=== PATIENT | female | born 2000 | race Caucasian/White ===

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

== ENCOUNTER 2022-01-08 10:04 | Outpatient (CLI) | payer OTHER, SELFPAY ==
[2022-01-08 10:52] LABS: Hematocrit 39.8 % (37.0-47.0); Hemoglobin 13.3 g/dL (12.0-15.0); Mean Corpuscular HGB Conc 33.4 g/dl (32-36); Mean Corpuscular Hemoglobin 30.4 pg (26-34); Mean Corpuscular Volume 91.1 fl (80-100); Mean Platelet Volume 10.8 fl (7.4-10.4); Platelet Count Result 206 k/mm3 (150-375); Red Blood Count 4.37 M/mm3 (4.2-5.4); Red Cell Distribution Width 12.1 % (11.5-14.5); White Blood Count 4.6 K/mm3 (4.5-10.0)
[2022-01-08 11:20] LABS: Beta HCG Quantitative < 2.39 mIU/ML
[2022-01-08 11:33] LABS: Thyroid Stimulating Hormone 0.942 uIU/mL (0.465-4.680)
[2022-01-08 11:48] LABS: Free T4 Free Thyroxine 0.91 ng/mL (0.78-2.19)
== END 2022-01-08 10:05 | disposition home or self-care (01) ==
LOC: ANHLAB 10:12
PROVIDERS: Visit Provider Obstetrics & Gynecology Gynecology
DX: N93.8 Other specified abnormal uterine and vaginal bleeding (principal)
CPT/HCPCS: 36415; 84439; 84443; 84702; 85027

== ENCOUNTER 2022-05-31 10:05 | Emergency (ER) | payer OTHER, SELFPAY ==
--- NOTE | ~2022-05-31 | CT_ITS ---
EXAMINATION: CT abdomen pelvis wo con DATE: 05/31/2022 11:30 INDICATION: Abdominal pain. Nausea and vomiting. TECHNIQUE: Computed tomography (CT) of the abdomen and pelvis was performed without intravenous contr ast. Automated exposure control and iterative reconstruction technique were employed. The dose-length product was 284.45 mGy-cm. COMPARISON: Chest CT 12/05/2018 FINDINGS: The visualized portions of the lung bases are clear without pneumonia or pleural effusion. The heart size is normal. No pericardial effusion. The liver, gallbladder, spleen, pancreas, adrenal glands, and kidneys are normal. There is no urolithiasis. There are no dilated loops of bowel. There are changes of appendectomy. There are no pathologically enlarged lymph nodes. There is no free intra peritoneal fluid. There is dextrocurvature of thoracolumbar spine. IMPRESSION: 1. No etiology for the patient's symptoms. Reviewed, dictated and finalized at location A.
[2022-05-31 10:07] VITALS: BP 114/73; PULSE 85; RESP 18; TEMP 36.4; O2SAT 100
--- NOTE | 2022-05-31 10:22 | ED.GENADULT ---
HPI - General Adult General Chief complaint: Nausea/Vomiting/Diarrhea Stated complaint: vomiting Time Seen by Provider: 05/31/22 10:13 Source: RN notes reviewed History of Present Illness HPI narrative: Patient presents emergency room from home for nausea vomiting. Patient states that she has been having issues with nausea and vomiting for the past 1 week. She states that she was at [facility], [place] operated by [facility] on May 26 with nausea vomiting she had negative work-up at that time was discharged with Zofran. States she had been doing better but began to have nausea and vomiting the middle of the night last night with numerous episodes. States that she was finally able to take her Zofran which she had been given at 9 AM this morning and her nausea is improved at this time but came in for further evaluation. She denies any fevers or chills she denies any chest pain or shortness of breath she notes mild abdominal cramping denies any diarrhea Related Data Home Medications Medication Instructions Recorded Confirmed ergocalciferol (vitamin D2) 1,250 11/17/19 mcg (50,000 unit) capsule Allergies Allergy/AdvReac Type Severity Reaction Status Date / Time No Known Allergies Allergy Unknown Verified 05/31/22 10:11 Review of Systems Review of Systems: Gen.: Denies fevers or chills ENT: Denies congestion Respiratory: Denies shortness of breath or cough CV: Denies chest pain or palpitations GI: See HPI denies burning, urgency, frequency or hematuria Musculoskeletal: Denies back pain or muscle pain Neuro: Denies numbness, tingling, weakness or focal weakness Skin: Denies rash Except as documented, all other systems reviewed and negative [facility] Past Medical History Medical History Surgical History Surgical History History of laparoscopic appendectomy Family History Family History Mother Glaucoma High cholesterol Grandparent Chronic obstructive pulmonary disease Seizure Social History Social History Smoking status: Current every day smoker Tobacco type: e-cigarettes/vaping Second hand tobacco smoke exposure: No Alcohol intake: never Substance use: former Gender identity (if verbalized by the patient): Female Spiritual care concerns: No Exam Narrative: APPEARANCE: No acute distress, nontoxic, resting in bed EYES: EOMI HEENT: Normocephalic, atraumatic, OMM RESPIRATORY: No respiratory distress Clear to auscultation bilaterally with no rhonchi wheezing or rales. CARDIOVASCULAR: Regular rate and rhythm without murmurs rubs or gallops. ABDOMINAL: Soft, nontender, nondistended, no rebound or guarding MUSCULOSKELETAl: Moves all extremities. No clubbing, cyanosis or edema. NEURO: Awake and alert. Following commands, speech normal, no focal deficits SKIN:: Warm, dry. No rashes lesions or abrasions PSYCHIATRIC: Normal affect/mood, Course Course Emergency Course: Patient has had no nausea vomiting on ED states she is feeling much better Discussed with patient results of workup and diagnosis. Discussed need for follow-up with primary care, proper use of medication, and reasons to return to the emergency department. Patient understands and agrees to current treatment plan Vital Signs Vital signs: Vital Signs Temperature 97.6 F 05/31/22 10:07 Pulse Rate 85 05/31/22 10:07 Respiratory Rate 18 05/31/22 10:07 Blood Pressure 114/73 05/31/22 10:07 Pulse Oximetry 100 05/31/22 10:07 Oxygen Delivery Room Air 05/31/22 10:07 Temperature 97.6 F 05/31/22 10:07 Pulse Rate 85 05/31/22 10:07 Respiratory Rate 18 05/31/22 10:07 Blood Pressure 114/73 05/31/22 10:07 Pulse Oximetry 100 05/31/22 10:07 Oxygen Delivery Room Air 05/31/22 10:07 Med
[2022-05-31] MEDS: SODIUM CHLORIDE 0.9% IV 1,000 ML 999 ML IV CONT (10:28)
[2022-05-31] MEDS: FAMOTIDINE 20 MG/2 ML VIAL IV PUSH (10:29)
[2022-05-31 10:30] LABS: Basophils Percent Auto 0.6 % (0.2-1.2); Eosinophils Percent Auto 0.6 % (0-4.4); Hematocrit 37.3 % (37.0-47.0); Hemoglobin 12.6 g/dL (12.0-15.0); Immature Granulocyte Absolute 0.01 K/mm3 (0.00-0.031); Immature Granulocyte Percent A 0.2 % (0-0.5); Lymphocytes Percent Auto 17.6 % (18.3-44.2); Mean Corpuscular HGB Conc 33.8 g/dl (32-36); Mean Corpuscular Hemoglobin 30.9 pg (26-34); Mean Corpuscular Volume 91.4 fl (80-100); Mean Platelet Volume 11.2 fl (7.4-10.4); Monocytes Absolute Auto 0.3 K/mm3 (0.1-0.6); Monocytes Percent Auto 6.1 % (2.6-8.5); Neutrophils Absolute Auto 3.8 K/mm3 (1.3-6.7); Neutrophils Percent Auto 74.9 % (45.5-73.1); Platelet Count Result 227 k/mm3 (150-375); Red Blood Count 4.08 M/mm3 (4.2-5.4); Red Cell Distribution Width 12.2 % (11.5-14.5); White Blood Count 5.1 K/mm3 (4.5-10.0)
[2022-05-31 10:42] LABS: Alanine Aminotransferase 22 U/L (6-35); Alkaline Phosphatase 75 U/L (45-116); Anion Gap 12 mmol/L (8-16); Aspartate Amino Transferase 26 U/L (14-36); Bilirubin,Total 0.9 mg/dL (0.2-1.3); Blood Urea Nitrogen 10 mg/dL (8-21); Calcium 9.2 mg/dL (8.9-10.7); Carbon Dioxide 23 mmol/L (22-30); Chloride 106 mmol/L (98-107); Estimated CRCL calculation 119 ml/min; Estimated Glomerular Filt Rate > 60; Glucose 99 mg/dL (65-110); Lipase 31 U/L (23-300); Potassium 3.6 mmol/L (3.4-5.0); Sodium 141 mmol/L (134-143)
[2022-05-31 11:03] LABS: Appearance Urine Turbid (Clear); Bacteria Urine 4+ /hpf; Bilirubin Urine Negative (Negative); Blood Urine Negative (Negative); Color Urine Dark Yellow (Yellow); Glucose Urine UA Negative (Negative); Ketones Urine 1+ mg/dL (Negative); Leukocyte Esterase Ur 2+ LEU/UL (Negative); Need Manual Microscopic Reviewed; Nitrate Urine Negative (Negative); Protein Urine 1+ mg/dL (Negative); RBC Urine 0-2 /hpf (0-2); Specific Grav Ur 1.025 (1.001-1.035); Squamous Epithelial Cell Urine Many /hpf (Few); WBC Urine 21-50 /hpf; pH Urine 5.5 (5.0-9.0)
[2022-05-31 11:05] LABS: Add Urine Microscopic? YES
[2022-05-31 11:06] LABS: Influenza A QL RT-PCR Negative (Negative); Influenza B QL RT-PCR Negative (Negative); SARS-CoV-2 RNA PCR Negative
[2022-05-31 11:50] VITALS: BP 130/74; PULSE 80; RESP 16; O2SAT 99
== END 2022-05-31 12:11 | disposition home or self-care (01) ==
PROVIDERS: Emergency Provider Emergency Medicine
DX: N39.0 Urinary tract infection, site not specified (principal); R11.2 Nausea with vomiting, unspecified; F17.290 Nicotine dependence, other tobacco product, uncomplicated; Z20.822 Contact with and (suspected) exposure to COVID-19
CPT/HCPCS: 36415; 74176; 80053; 81001; 81025; 83690; 85025; 87086; 87088; 87636; 96361; 96365; 99284; J0696; J7030

== ENCOUNTER 2023-02-08 08:38 | Emergency (ER) | payer MEDICAID, SELFPAY ==
--- NOTE | ~2023-02-08 | US_ITS ---
EXAMINATION: US OB transvaginal DATE: 02/08/2023 10:39 INDICATION: Vaginal bleeding during first trimester TECHNIQUE: Real-time pelvic transabdominal and transvaginal ultrasound was performed. COMPARISON: None. FINDINGS: The uterus measures 9.5 x 6.1 x 6.7 cm. There is an intrauterine gestational sac. A yolk sa c is identified. heart motion is identified measuring 185 beats per minute (bpm) by M-mode Dopp ler. The crown rump length measures 2.1 cm, which correlates with an estimated gestational age of 8 weeks and 5 day(s) (+/-) 5 day(s). The right ovary measures 3.8 x 1.4 x 2.2 cm. The left ovary measures 3.3 x 2.3 x 1.8 cm. There is nor mal vascular flow in the ovaries. There is no free fluid in the pelvis. IMPRESSION: 1. Live intrauterine with an estimated gestational age of 8 weeks and 5 day(s) (+/-) 5 day( s) and an estimated delivery date of 09/15/2023. Reviewed, dictated and finalized at location F. LIANCE ENGINEER IMPRESSION: 1. Live intrauterine with an estimated gestational age of 8 weeks and 5 day(s) (+/-) 5 day(s) and an estimated delivery date of 09/15/2023.
[2023-02-08 08:38] VITALS: BP 143/68; PULSE 70; RESP 18; TEMP 36.6; O2SAT 100
[2023-02-08 09:33] LABS: Basophils Percent Auto 0.7 % (0.2-1.2); Eosinophils Absolute Auto 0.1 K/mm3 (0-0.3); Eosinophils Percent Auto 1.1 % (0-4.4); Hematocrit 38.7 % (37.0-47.0); Immature Granulocyte Absolute 0.01 K/mm3 (0.00-0.031); Immature Granulocyte Percent A 0.2 % (0-0.5); Lymphocytes Absolute Auto 1.86 K/mm3 (0.9-3.2); Lymphocytes Percent Auto 33.3 % (18.3-44.2); Mean Corpuscular HGB Conc 33.6 g/dl (32-36); Mean Corpuscular Hemoglobin 30.6 pg (26-34); Mean Corpuscular Volume 91.1 fl (80-100); Mean Platelet Volume 10.3 fl (7.4-10.4); Monocytes Absolute Auto 0.5 K/mm3 (0.1-0.6); Monocytes Percent Auto 8.2 % (2.6-8.5); Neutrophils Absolute Auto 3.2 K/mm3 (1.3-6.7); Neutrophils Percent Auto 56.5 % (45.5-73.1); Platelet Count Result 211 k/mm3 (150-375); Red Blood Count 4.25 M/mm3 (4.2-5.4); Red Cell Distribution Width 11.9 % (11.5-14.5); White Blood Count 5.6 K/mm3 (4.5-10.0)
--- NOTE | 2023-02-08 09:47 | ED.FEMALEGU ---
HPI - Female Genitourinary General Chief complaint: Vaginal Bleeding Stated complaint: 7 weeks preg, bleeding, cramping Time Seen by Provider: 02/08/23 09:47 Source: patient Mode of arrival: ambulatory Limitations: no limitations History of Present Illness HPI Narrative: Rolo is a 22-year-old female patient presenting to the ER today for vaginal bleeding and pelvic cramping times 1 day. She reports that she did have some vaginal bleeding 3 days ago and was seen at another ER but the bleeding stopped. Reports bleeding started again today noted in the toilet. Also is having cramping in the pelvis area. States she is 7 weeks . Denies any fever or chills. Last intercourse was last night. Denies having any pain during intercourse and the intercourse was not rough Related Data Home Medications Medication Instructions Recorded Confirmed ergocalciferol (vitamin D2) 1,250 11/17/19 mcg (50,000 unit) capsule Allergies Allergy/AdvReac Type Severity Reaction Status Date / Time No Known Allergies Allergy Unknown Verified 02/08/23 09:46 Review of Systems Review of Systems: Pertinent positives per HPI. Patient denies any fever, chills, rash, headache, visual changes, dizziness, cough, runny nose, sore throat, shortness of breath, chest pain, palpitations, nausea, vomiting, diarrhea, constipation, abdominal pain, or any urinary issues. [facility] Past Medical History Medical History Surgical History Surgical History History of laparoscopic appendectomy Family History Family History Mother Glaucoma High cholesterol Grandparent Chronic obstructive pulmonary disease Seizure Social History Social History Smoking status: Current every day smoker Tobacco type: e-cigarettes/vaping Second hand tobacco smoke exposure: No Alcohol intake: never Substance use: former Gender identity (if verbalized by the patient): Female Spiritual care concerns: No Comments At the time of my signature, I reviewed and agree with the nursing past medical, surgical, social, and family history. There is no relevant family history pertinent to the patient complaint. Exam Narrative: General: Well-developed, well nourished, in no apparent distress Head: Normocephalic, atraumatic. Cardio: Regular rate and rhythm, s1 and s2 normal, no murmur appreciated. Resp: Clear to auscultation bilaterally, no rhonchi, rales, wheezing or rubs. Abdomen: Soft, pliable, bowel sounds present in all quadrants, non-tender to palpation, no CVAT tenderness. : Pelvic exam performed with (Renetta SANCHEZ) at bedside. Verbal consent obtained from patient. Normal external female genitalia without lesions or masses, Urinary meatus: patent without discharge, Vagina: No lesions, masses,-bloody discharge noted Cervix: pink without mass, lesions, or tenderness. Bloody discharge noted coming from the cervix Adnexa: without palpable mass or tenderness. Course Course Emergency Course: Portions of this record may have been created with voice recognition software. Vital Signs Vital signs: Vital Signs Temperature 36.6 C 02/08/23 08:38 Pulse Rate 70 02/08/23 08:38 Respiratory Rate 18 02/08/23 08:38 Blood Pressure 143/68 H 02/08/23 08:38 Pulse Oximetry 100 02/08/23 08:38 Oxygen Delivery Room Air 02/08/23 08:38 Temperature 36.6 C 02/08/23 08:38 Pulse Rate 70 02/08/23 08:38 Respiratory Rate 18 02/08/23 08:38 Blood Pressure 143/68 H 02/08/23 08:38 Pulse Oximetry 100 02/08/23 08:38 Oxygen Delivery Room Air 02/08/23 08:38 Vital signs reviewed MDM - Female Genitourinary MDM Narrative Medical decision making narrative: At the time of visit patient
[2023-02-08 12:03] LABS: Alanine Aminotransferase 30 U/L (6-35); Albumin Level 4.8 g/dL (3.5-5.1); Alkaline Phosphatase 60 U/L (38-126); Anion Gap 11 mmol/L (8-16); Aspartate Amino Transferase 30 U/L (14-36); Bilirubin,Total 0.7 mg/dL (0.2-1.3); Blood Urea Nitrogen 9 mg/dL (7-17); Calcium 9.4 mg/dL (8.4-10.2); Carbon Dioxide 20 mmol/L (22-30); Chloride 106 mmol/L (98-107); Estimated CRCL calculation 108 ml/min; Estimated Glomerular Filt Rate > 60; Glucose 88 mg/dL (65-110); Potassium 3.6 mmol/L (3.4-5.0); Sodium 137 mmol/L (137-145)
[2023-02-08 12:25] LABS: Add Urine Microscopic? YES; Appearance Urine Clear (Clear); Bacteria Urine None Seen /hpf; Bilirubin Urine Negative (Negative); Blood Urine 3+ (Negative); Color Urine Yellow (Yellow); Glucose Urine UA Negative (Negative); Ketones Urine 3+ mg/dL (Negative); Leukocyte Esterase Ur Negative LEU/UL (Negative); Need Manual Microscopic Reviewed; Nitrate Urine Negative (Negative); Non Pathogenic Casts 0-2; Protein Urine Negative (Negative); RBC Urine >100 /hpf (0-2); Squamous Epithelial Cell Urine Occasional /hpf (Few); Urobilinogen Urine 0.2 mg/dL (<2.0); WBC Urine 0-5 /hpf; pH Urine 5.5 (5.0-9.0)
[2023-02-08 13:19] VITALS: BP 138/68; PULSE 84; RESP 16; O2SAT 98
== END 2023-02-08 13:20 | disposition home or self-care (01) ==
PROVIDERS: Emergency Medicine; Emergency Provider Nurse Practitioner Family
DX: O20.9 Hemorrhage in early pregnancy, unspecified (principal); O99.331 Smoking (tobacco) complicating pregnancy, first trimester; F17.290 Nicotine dependence, other tobacco product, uncomplicated; Z3A.01 Less than 8 weeks gestation of pregnancy
CPT/HCPCS: 36415; 76817; 80053; 81001; 84702; 85025; 85461; 86850; 86900; 86901; 99284

== ENCOUNTER 2023-03-17 10:20 | Outpatient (CLI) | payer OTHER, SELFPAY ==
[2023-03-17 10:53] LABS: Basophils Percent Auto 0.3 % (0.2-1.2); Eosinophils Absolute Auto 0.1 K/mm3 (0-0.3); Eosinophils Percent Auto 0.8 % (0-4.4); Hematocrit 34.4 % (37.0-47.0); Hemoglobin 11.5 g/dL (12.0-15.0); Immature Granulocyte Absolute 0.03 K/mm3 (0.00-0.031); Immature Granulocyte Percent A 0.4 % (0-0.5); Lymphocytes Absolute Auto 1.89 K/mm3 (0.9-3.2); Mean Corpuscular HGB Conc 33.4 g/dl (32-36); Mean Corpuscular Hemoglobin 30.3 pg (26-34); Mean Corpuscular Volume 90.8 fl (80-100); Mean Platelet Volume 10.2 fl (7.4-10.4); Monocytes Absolute Auto 0.3 K/mm3 (0.1-0.6); Monocytes Percent Auto 4.5 % (2.6-8.5); Neutrophils Absolute Auto 5.2 K/mm3 (1.3-6.7); Platelet Count Result 236 k/mm3 (150-375); Red Blood Count 3.79 M/mm3 (4.2-5.4); Red Cell Distribution Width 11.9 % (11.5-14.5); White Blood Count 7.6 K/mm3 (4.5-10.0)
[2023-03-17 11:42] LABS: HIV 1/2 Ab P24 Ag Result Negative (Negative)
[2023-03-17 12:08] LABS: Hemoglobin A1C 5.2 % (<5.7)
[2023-03-17 12:12] LABS: Hepatitis B Surface Antigen Negative (Negative); Rubella IgG Antibody 13.5 IU/ML
[2023-03-17 12:17] LABS: Hepatitis C Virus Antibody Negative (Negative)
[2023-03-17 15:50] LABS: Rapid Plasma Reagin Non-Reactive (NonReactive)
== END 2023-03-17 10:21 | disposition home or self-care (01) ==
LOC: ANHLAB 10:24
PROVIDERS: PCP Advanced Practice Midwife; Visit Provider Advanced Practice Midwife
DX: Z36.9 Encounter for antenatal screening, unspecified (principal)
CPT/HCPCS: 36415; 82306; 82728; 83036; 85025; 86592; 86703; 86762; 86803; 86850; 86900; 86901; 87340; G0432

== ENCOUNTER 2023-04-27 16:13 | Outpatient (CLI) | payer OTHER, SELFPAY ==
--- NOTE | ~2023-04-27 | US_ITS ---
EXAMINATION: US OB /maternal detail DATE: 04/27/2023 17:32 INDICATION: Second trimester anatomic survey TECHNIQUE: Real-time ultrasound of the pelvis was performed. COMPARISON: None. FINDINGS: There is a single living fetus in vertex presentation. The placenta is anterior and 5.2 cm from the i nternal cervical os. The measured cervical length is 6.4 cm. heart rate is 138 beats per minute (bpm). cardiac activity and movement are noted. The amniotic fluid index is subjectivel y normal. The stomach is not well demonstrated. The following anatomy was identified as normal: 4 chamber heart 3 vessel cord cord insertion kidneys urinary bladder spine diaphragm ventricles cisterna magna cerebellum The following biometric data were obtained: Biparietal diameter (BPD): 4.8 cm; head circumference (HC): 18.6 cm; abdominal circumference (AC): 15 .4 cm; femur length (FL): 3.3 cm. These measurements are concordant. Estimated weight is 361 g +/- 54 g, which correlates with the 83rd percentile when 09/15/2023 is used as estimated date of delivery. As single measurements, these parameters are each equal to the following estimated gestational ages w ith ranges of +/- 2 standard deviations: BPD: 20 weeks 3 days +/- 1 weeks 5 days. HC: 20 weeks 6 days +/- 1 weeks 3 days. AC: 20 weeks 4 days +/- 2 weeks 0 days. FL: 20 weeks 3 days +/- 1 weeks 6 days. estimated gestational age based solely on measurements from this exam is 20 weeks 4 days +/- 1 weeks 3 days. IMPRESSION: 1. Single living fetus in vertex presentation. 2. Estimated weight is 361 g +/- 54 g, which correlates with the 83rd percentile when 09/15/2023 is used as estimated date of delivery. 3. stomach not well demonstrated. Reviewed, dictated and finalized at location L. W[employer] QU[employer] ASSURANCE SPECIALIST IMPRESSION: 1. Single living fetus in vertex presentation. 2. Estimated weight is 361 g +/- 54 g, which correlates with the 83rd per centile when 09/15/2023 is used as estimated date of delivery. 3. stomach not well demonstrated.
== END 2023-04-27 16:14 | disposition home or self-care (01) ==
LOC: ANHIMG 16:14
PROVIDERS: PCP Advanced Practice Midwife; Visit Provider Advanced Practice Midwife
DX: Z36.9 Encounter for antenatal screening, unspecified (principal); Z3A.20 20 weeks gestation of pregnancy
CPT/HCPCS: 76805

== ENCOUNTER 2023-05-28 10:26 | Outpatient (CLI) | payer OTHER, SELFPAY ==
--- NOTE | ~2023-05-28 | US_ITS ---
EXAMINATION: US OB follow up DATE: 05/28/2023 12:22 INDICATION: Follow-up growth TECHNIQUE: Real-time transabdominal obstetric ultrasound. FINDINGS: Comparison to multiple prior studies sequentially, with oldest reviewed study dated 2022. There is a single living fetus in vertex presentation. The placenta is anterior without placenta pre via. cardiac activity and movement is noted with a heart rate of 1:30 beats per minute. The amniotic fluid volume is normal. MARIAJOSE measures 17.6 cm. The following biometric data were obtained: BPD: 62mm corresponds to gestational age 25 weeks 2 days. Head circumference: 226mm corresponds to gestational age 24 weeks 5 days. Abdominal circumference: 197mm corresponds to gestational age 24 weeks 2 days. Femur length: 47mm corresponds to gestational age 25 weeks 4 days. Estimated weight: 743grams +/- 111grams, 68%.] IMPRESSION: 1. Single living intrauterine in vertex presentation with an estimated gestational age of 25 weeks 0 days by inititial ultrasound. Appropriate interval growth. 2. Normal placenta. Reviewed, dictated and finalized at location B. IMPRESSION: 1. Single living intrauterine in vertex presentation with an estimat ed gestational age of 25 weeks 0 days by inititial ultrasound. Appropriate int erval growth. 2. Normal placenta.
== END 2023-05-28 10:27 | disposition home or self-care (01) ==
LOC: ANHIMG 10:30
PROVIDERS: PCP Advanced Practice Midwife; Visit Provider Obstetrics & Gynecology Gynecology
DX: Z36.2 Encounter for other antenatal screening follow-up (principal)
CPT/HCPCS: 76816

== ENCOUNTER 2023-06-30 09:50 | Outpatient (CLI) | payer OTHER, SELFPAY ==
[2023-06-30 11:34] LABS: Hematocrit 33.2 % (37.0-47.0); Hemoglobin 11.3 g/dL (12.0-15.0)
[2023-06-30 11:43] LABS: Glucose 1 Hour PP 50gm Dose 119 mg/dL
[2023-06-30 12:25] LABS: HIV 1/2 Ab P24 Ag Result Negative (Negative)
[2023-06-30 13:23] LABS: Vitamin D 25 Hydroxy 35.1 ng/mL
== END 2023-06-30 09:51 | disposition home or self-care (01) ==
LOC: ANHLAB 09:53
PROVIDERS: PCP Advanced Practice Midwife; Visit Provider Advanced Practice Midwife
DX: Z36.9 Encounter for antenatal screening, unspecified (principal)
CPT/HCPCS: 36415; 82306; 82947; 85014; 85018; 86703; G0432

== ENCOUNTER 2023-08-17 15:14 | Outpatient (CLI) | payer OTHER, SELFPAY ==
--- NOTE | ~2023-08-17 | US_ITS ---
EXAMINATION: US OB follow up DATE: 08/17/2023 16:44 INDICATION: Expected size less than expected for estimated gestational age TECHNIQUE: Real-time ultrasound of the pelvis was performed. The interpreting radiologist was not pre sent for the study. COMPARISON: None. FINDINGS: There is a single living fetus in vertex presentation. The placenta is anterior and not low-lying. F etal heart rate is 128 beats per minute (bpm). The amniotic fluid volume is subjectively normal. The following biometric data were obtained: BPD: 9.4 cm -> 38 weeks 0 days Head circumference: 34.2 cm -> 39 weeks 3 days Abdominal circumference: 31.6 cm -> 35 weeks 4 days Femur length: 6.9 cm -> 35 weeks 2 days These measurements are concordant. Head circumference to abdominal circumference ratio: 1.08 (normal range 0.92-1.05). Estimated weight: 2857 g (+/-) 429 g or 6 lbs. 5 oz. (+/-) 15 oz. IMPRESSION: 1. Single living fetus in vertex presentation with heart rate of 128 bpm. 2. Estimated weight is 58th percentile by Hadlock criteria when 09/15/2023 is used as the estima maura date of delivery (MALLORY). Please correlate with clinical information or earlier ultrasounds for mos t accurate MALLORY. Reviewed, dictated and finalized at location A. IMPRESSION: 1. Single living fetus in vertex presentation with heart rate of 128 bpm. 2. Estimated weight is 58th percentile by Hadlock criteria when 09/15/2023 is used as the estimated date of delivery (MALLORY). Please correlate with clinica l information or earlier ultrasounds for most accurate MALLORY.
== END 2023-08-17 15:15 | disposition home or self-care (01) ==
LOC: ANHIMG 15:15
PROVIDERS: PCP Advanced Practice Midwife; Visit Provider Obstetrics & Gynecology Gynecology
DX: O36.5930 Maternal care for other known or suspected poor fetal growth, third trimester, not applicable or unspecified (principal); Z3A.00 Weeks of gestation of pregnancy not specified
CPT/HCPCS: 76816

== ENCOUNTER 2023-09-02 21:21 | Inpatient (IN) | payer OTHER, SELFPAY ==
[2023-09-02 21:32] VITALS: BP 111/77; PULSE 102
[2023-09-02 22:00] VITALS: BP 126/80; PULSE 97
[2023-09-02 22:02] LABS: Basophils Percent Auto 0.3 % (0.2-1.2); Eosinophils Absolute Auto 0.1 K/mm3 (0-0.3); Eosinophils Percent Auto 0.5 % (0-4.4); Hematocrit 31.7 % (37.0-47.0); Hemoglobin 10.9 g/dL (12.0-15.0); Immature Granulocyte Absolute 0.06 K/mm3 (0.00-0.031); Immature Granulocyte Percent A 0.6 % (0-0.5); Lymphocytes Percent Auto 20.3 % (18.3-44.2); Mean Corpuscular HGB Conc 34.4 g/dl (32-36); Mean Corpuscular Hemoglobin 30.6 pg (26-34); Mean Platelet Volume 12.3 fl (7.4-10.4); Monocytes Absolute Auto 0.8 K/mm3 (0.1-0.6); Monocytes Percent Auto 7.3 % (2.6-8.5); Neutrophils Absolute Auto 7.7 K/mm3 (1.3-6.7); Platelet Count Result 176 k/mm3 (150-375); Red Blood Count 3.56 M/mm3 (4.2-5.4); Red Cell Distribution Width 13.2 % (11.5-14.5); White Blood Count 10.8 K/mm3 (4.5-10.0)
[2023-09-02 22:30] VITALS: BP 118/74; PULSE 95
[2023-09-02 22:44] VITALS: BMI 21.8
[2023-09-02 22:51] LABS: HIV 1/2 Ab P24 Ag Result Negative (Negative)
[2023-09-02 23:00] VITALS: BP 115/81; PULSE 91; TEMP 36.6
[2023-09-02 23:01] LABS: Hepatitis B Surface Antigen Negative (Negative)
[2023-09-02 23:02] LABS: Rubella IgG Antibody 10.9 IU/ML
[2023-09-02 23:30] VITALS: BP 123/77; PULSE 77
[2023-09-03] VITALS (84 sets, daily range): BP systolic 65–194; BP diastolic 38–166; PULSE 63–141; RESP 16–20; TEMP 36.2–37.3; O2SAT 94–100
[2023-09-03] MEDS: LACTATED RINGERS 1,000 ML 125 ML IV CONT (02:32)
[2023-09-03] MEDS: OXYTOCIN 30 UNITS/NS 500 ML 30 UNITS/500 ML BAG IV CONT (02:35)
--- NOTE | 2023-09-03 03:20 | WPDANESEPP ---
Anes - Eval Pre Procedure Procedure: labor epidural Date/Time: 09/03/23 03:20 Surgeon: buzz Preop Diagnosis: pain during labor Pre Op Diagnosis: Leaking Patient Data Age: 23 Gender: F Height: 1.83 m Weight: 73 kg Last Vital Signs Temp 36.6 C 09/03/23 01:00 Pulse 78 09/03/23 03:00 BP 112/62 09/03/23 03:00 Pulse Ox 99 09/03/23 03:15 O2 Del Method Room Air 09/02/23 22:47 Allergies Allergy/AdvReac Type Severity Reaction Status Date / Time No Known Allergies Allergy Unknown Verified 09/03/23 02:11 Home Medications Medication Instructions Recorded Confirmed Type ergocalciferol (vitamin D2) 1,250 11/17/19 History mcg (50,000 unit) capsule ofloxacin 0.3 % ear drops 10 drp LEFT EAR Q12H 14 days #10 mL 11/17/19 Rx cephalexin 500 mg capsule 500 mg PO Q8H 7 days #21 caps 05/31/22 Rx famotidine 20 mg tablet (Pepcid AC) 20 mg PO DAILY #14 tabs 05/31/22 Rx Laboratory Tests 09/02/23 21:55 WBC 10.8 H K/mm3 (4.5-10.0) RBC 3.56 L M/mm3 (4.2-5.4) Hgb 10.9 L g/dL (12.0-15.0) Hct 31.7 L % (37.0-47.0) MCV 89.0 fl (80-100) MCH 30.6 pg (26-34) MCHC 34.4 g/dl (32-36) RDW 13.2 % (11.5-14.5) Plt Count 176 k/mm3 (150-375) MPV 12.3 H fl (7.4-10.4) Immature Gran % (Auto) 0.6 H % (0-0.5) Neut % (Auto) 71.0 % (45.5-73.1) Lymph % (Auto) 20.3 % (18.3-44.2) Greer % (Auto) 7.3 % (2.6-8.5) Eos % (Auto) 0.5 % (0-4.4) Baso % (Auto) 0.3 % (0.2-1.2) Lymph # (Auto) 2.20 K/mm3 (0.9-3.2) Greer # (Auto) 0.8 H K/mm3 (0.1-0.6) Eos # (Auto) 0.1 K/mm3 (0-0.3) Baso # (Auto) 0.0 K/mm3 (0.0-0.1) Abs Immat Gran (auto) 0.06 H K/mm3 (0.00-0.031) Absolute Neuts (auto) 7.7 H K/mm3 (1.3-6.7) Absolute Nucleated RBC 0.000 K/mm3 (0.0-0.012) Nucleated RBC % 0.0 % (0.0-0.2) RPR Pending Hep Bs Antigen Negative (Negative) HIV 1&2 Ab/P24 Ag 4thGn Negative (Negative) Rubella IgG Antibody 10.9 IU/ML (10 - ) Blood Type A Positive Antibody Screen Negative Patient hx anesthesia problems: none Family hx anesthesia problems: none Results Review: All pre-operative results and documents have been reviewed as part of the pre-operative evaluation. [facility] Past Medical History Medical History Surgical History Surgical History History of laparoscopic appendectomy Family History Family History Mother Glaucoma High cholesterol Grandparent Chronic obstructive pulmonary disease Seizure Social History Social History Smoking status: Current every day smoker Tobacco type: e-cigarettes/vaping Second hand tobacco smoke exposure: Yes Alcohol intake: never Substance use: former Last use: January 2023 Do You Feel Safe in your Home?: Yes Lack of Transportation: No Lack of Food: Never True Current Housing: I Have Housing Concerned About Future Housing: No Difficulty Paying Gas/Electric Bills: No Difficulty Paying for Meds: No Currently Unemployed: No Education: High School Diploma/GED Difficulty w/ Childcare or Family Care: No Gender identity (if verbalized by the patient): Female Spiritual care concerns: No Exam Day of Procedure 09/03/23 03:20
--- NOTE | 2023-09-03 06:53 | WPDOBADMIT ---
Obstetrics - Admit Note Admission Note: record reviewed. No pertinent additions to the history and/or any subsequent changes in the physical findings that are not consistent with the expected course of the were found. Additions to the history and/or subsequent changes in the physical findings follow. Admitted from home after SROM of clear fluid. .
--- NOTE | 2023-09-03 06:54 | PM.OBPRVD ---
OB - Vaginal Delivery Note Procedure Delivery date: 09/03/23 Induction method: None Delivery augmentation: Pitocin Delivery monitor: External FHT and External Uterine Route of delivery: Episiotomy description: None Laceration Description: None Specimen: Yes (placenta) Quantitative Blood Loss (ml): 250 Anesthesia type: Epidural Disposition: Floor Complications: No immediate complications Narrative: Rolo arrived from home after Spontaneous rupture membranes at home. After few hours of no signs of labor or regular painful contractions, Pitocin was started. She quickly progressed to complete dilation and pushed very well with contractions. She delivered the head over intact perineum. Excellent restitution was observed. There was easy delivery of both the anterior and posterior shoulders followed by the remainder of the infant. He was placed on the maternal abdomen and dried and stimulated by the nursery staff. At approximately 20 minutes of life, brisk bleeding was noted however there was no lengthening of the umbilical cord. Gentle fundal massage and gentle cord traction were continued but the placenta remained undelivered. At this time, CNM palpated for the placenta. Almost the entire placenta was present in the lower uterine segment with a very small portion remaining adherent to the fundus. A portion was approximately 3 cm wide manual sweep was performed and the placenta delivered intact at this time. There was excellent uterine tone and hemostasis. Mother and baby skin to skin and delivery room. Britton Baby Date of : 09/03/23 Time of : 06:14 Weeks of gestation at delivery: 38 Infant gender: Male Weight (pounds): 6 Weight (ounces): 12 presentation: vertex position: Right Occiput Anterior Placenta delivery description: Manual Removal Cord Vessel Description: 3 Vessels and Delayed Cord Clamping score one minute: 8 score five minutes: 9
[2023-09-03] MEDS: ceFAZolin 2 GM/D5W 50 ML 2 GM/50 ML BAG IVPB (06:55)
[2023-09-03] MEDS: OXYTOCIN 30 UNITS/NS 500 ML 30 UNITS/500 ML BAG 125 UNITS IV CONT (06:55)
--- NOTE | 2023-09-03 07:02 | PM.OBDSVD ---
DS: Admitting Diagnosis Discharge Date 09/04/23 Admitting Diagnosis 23 y.o. at 38 weeks SROM Hx Tachycardia Hx Lap Appy Nicotine use during Marijuana use during DS: Discharge Diagnosis Discharge Diagnosis (1) (normal spontaneous vaginal delivery): Code(s): O80 - Encounter for full-term uncomplicated delivery Status: Acute OB - DS: Summary Hospital Course Hospital Course: Uncomplicated OB Procedures : Ultrasound OB Procedures Intrapartum: Spontaneous Vag Delivery and Retained placenta OB Procedures: : None Peripartum Data Infant Delivery Method: Natural Vaginal Laceration Description: None Episiotomy description: None complications: none Status at Discharge Functional status at discharge: independent ambulation Overall status at discharge: patient is progressing back to baseline Time Spent with Patient Time attestation: Total time spent providing and/or coordinating discharge services: Exam Narrative: Alert and oriented. Mood is pleasant and cooperative. Perineum with minimal edema. Fundus firm and below umbilicus. Const: General: cooperative, healthy appearing, no acute distress and alert Orientation/consciousness: patient oriented x3 Limitations: no limitations Resp: Effort & Inspection: normal respiratory effort and able to speak in complete sentences Auscultation: clear to auscultation bilaterally Cardio: Rate: regular rate GI: Inspection: normal to inspection Auscultation: normal bowel sounds : General: Yes bladder normal to palpation External Female Exam: other (lochia WNL) Bimanual exam- vagina & uterus: bladder normal to palpation Other: Fundus firm and below U Skin: General skin exam: normal color and no rashes or lesions noted Neuro: General: patient oriented x3 and moves all extremities Cognition (Neuro): normal cognition Extrem: General: normal to inspection and no calf tenderness Psych: Appearance: grossly normal Mental Status: mental status grossly normal Affect: normal affect Thought process: Normal thought process present DS: Data Data Completed and Pending Labs on day of discharge: Labs from last 24 hours 09/02/23 21:55 WBC 10.8 H RBC 3.56 L Hgb 10.9 L Hct 31.7 L MCV 89.0 MCH 30.6 MCHC 34.4 RDW 13.2 Plt Count 176 MPV 12.3 H Immature Gran % (Auto) 0.6 H Neut % (Auto) 71.0 Lymph % (Auto) 20.3 Lake % (Auto) 7.3 Eos % (Auto) 0.5 Baso % (Auto) 0.3 Lymph # (Auto) 2.20 Lake # (Auto) 0.8 H Eos # (Auto) 0.1 Baso # (Auto) 0.0 Abs Immat Gran (auto) 0.06 H Absolute Neuts (auto) 7.7 H Absolute Nucleated RBC 0.000 Nucleated RBC % 0.0 RPR Pending Hep Bs Antigen Negative HIV 1&2 Ab/P24 Ag 4thGn Negative Rubella IgG Antibody 10.9 Blood Type A Positive Antibody Screen Negative Discharge Plan Discharge Attending physician on discharge: Kesha Alvarado Discharging Clinician: Lauren Oropeza Patient Disposition: Home, Self-Care Activity: may shower and pelvic rest Diet: as tolerated Wound Care Instructions: follow printed instructions Discharge Instructions: Continue taking your vitamin and any other supplements as previously directed (Examples: Iron, Vitamin D). You may take Tylenol 1000mg over the counter every 6 hours as needed for pain. Do not exceed 4000mg of Tylenol daily. You may continue using tucks pads and dermoplast spray if needed for a few more days. Depression Notify provider for signs or symptoms. These may include- Feelings: Feeling anxious, angry, hopeless, guilt, or loss of interest/pleasure in activities you normally enjoy. Mood swings or panic attacks. General: Extreme fatigue, loss of your appetite, feeling restless. Crying excessively, irritability, insomnia Psychological: Lack of concentration, depression or fear, unwanted thoughts Weigh
[2023-09-03] MEDS: BENZOCAINE 20% AER SPR (*SP) 56 GM CAN 1 SPRAY TOPICAL (09:12)
[2023-09-03] MEDS: WITCH HAZEL 40 PADS 1 PAD TOPICAL (09:12)
[2023-09-03 10:32] LABS: Rapid Plasma Reagin Non-Reactive (NonReactive)
--- NOTE | 2023-09-03 11:18 | OBPPTRN ---
0930-Patient transferred to post room #292 via wheelchair. Support person present. Oriented to unit, room, information board, rooming in, admission packet and security measures. Patient verbalizes understanding.
[2023-09-03] MEDS: IBUPROFEN 600 MG TABLET PO (22:15)
[2023-09-04 04:09] LABS: Hematocrit 31.4 % (37.0-47.0); Hemoglobin 10.5 g/dL (12.0-15.0)
[2023-09-04] MEDS: MULTIVIT/MIN/PREN/FOL AC/IRON TABLET 1 TAB PO (06:38)
[2023-09-04] MEDS: DOCUSATE SODIUM 100 MG CAPSULE PO (06:38)
[2023-09-04 06:40] VITALS: BP 115/68; PULSE 76; RESP 18; TEMP 36.5; O2SAT 99
--- NOTE | 2023-09-04 08:04 | PM.OBPNVD ---
OB - PN: Subj Subjective Date/time seen: 09/04/23 0745 Interval history: Doing well. Urinating without difficulty. Denies passing any large clots. Denies dizziness with ambulating. Tolerating po food and fluids. Bonding with infant. Patient comments: no complaints baby status: doing well feeding status: exclusively bottle feeding OB - PN: Obj Data Labs 09/04/23 03:08 Labs: Laboratory Results - last 24 hr 09/02/23 09/04/23 21:55 03:08 Hgb 10.5 L Hct 31.4 L RPR Non-reactive OB - PN A/P Assessment and Plan (1) (normal spontaneous vaginal delivery): Code(s): O80 - Encounter for full-term uncomplicated delivery Status: Acute Plan day: 1 Plan: discharge home Time Spent With Patient Time: Total time spent is greater than 50% in coordination of care (as documented) at patient's floor/unit and/or counseling patient: Review of Systems Review of Systems: All systems reviewed & are unremarkable except as noted in HPI and below Exam Narrative: Alert and oriented. Mood is pleasant and cooperative. Perineum with minimal edema. Fundus firm and below umbilicus. Const: General: cooperative, healthy appearing, no acute distress and alert Orientation/consciousness: patient oriented x3 Limitations: no limitations Resp: Effort & Inspection: normal respiratory effort and able to speak in complete sentences Auscultation: clear to auscultation bilaterally Cardio: Rate: regular rate GI: Inspection: normal to inspection Auscultation: normal bowel sounds : General: Yes bladder normal to palpation External Female Exam: other (lochia WNL) Bimanual exam- vagina & uterus: bladder normal to palpation Other: Fundus firm and below U Skin: General skin exam: normal color and no rashes or lesions noted Neuro: General: patient oriented x3 and moves all extremities Cognition (Neuro): normal cognition Extrem: General: normal to inspection and no calf tenderness Psych: Appearance: grossly normal Mental Status: mental status grossly normal Affect: normal affect Thought process: Normal thought process present
[2023-09-04] MEDS: medroxyPROGESTERone ACETATE IM 150 MG/ML SYR IM (09:10)
[2023-09-05 10:19] VITALS: BP 106/73; PULSE 91; RESP 18; TEMP 36.5; O2SAT 98
== END 2023-09-04 09:22 | disposition home or self-care (01) | DRG 560 ==
LOC: ANHLDR 09-03 07:06 → ANHOB2 09-03 09:35
PROVIDERS: Admitting Provider Obstetrics & Gynecology Gynecology; PCP Advanced Practice Midwife; Visit Provider Obstetrics & Gynecology Gynecology
DX: O80 Encounter for full-term uncomplicated delivery (principal); Z3A.38 38 weeks gestation of pregnancy; Z37.0 Single live birth
CPT/HCPCS: 36415; 85014; 85018; 85025; 86592; 86703; 86762; 86850; 86900; 86901; 87340; 88307; A9270; G0432; J0690; J1050; J2590; J2795; J7120

== ENCOUNTER 2024-12-02 08:17 | Outpatient (CLI) | payer OTHER, SELFPAY ==
--- OUTSIDE RECORDS SUMMARY | 2024-12-02 08:25 | XMS_ITS | Patient Health Record ---
Author Organization [facility] Address [address] [place] [address] Care Team Providers Care Fabrication Manager Name Role Phone Radha Fermin Primary Care Provider [phone] Allergies No Known Allergies Reason For Referral No Information Medications Medication SIG (Take, Route, Frequency, Duration) Notes Start Date End Date Status Polyethylene Glycol 3350 17 GM/SCOOP as directed Orally twice a day with meals; Duration: 30 days 07/03/2021 Active Azithromycin 250 MG take 2 tablets then 1 tablet once a day Orally once a day; Duration: 5 days 12/25/2021 Active Social History Tobacco Use: Social History Observation Description Date Details (start date - stop date) Unknown Sex Assigned At : Social History Observation Description Sex Assigned At Female Dont use, Tobacco Use/Smoking Question Answer Notes Are you a Uses tobacco in other forms Alcohol Screen (Audit-C) Question Answer Notes Did you have a drink containing alcohol in the p ast year? No Problems Problem Type SNOMED Code ICD Code Onset Dates Problem Status W/U Status Risk Notes Problem Constipation (22232839) Constipation (K59.00) Active confirmed Problem Adult health examination (922342094) Routine adult health maintenance (Z00.00) Active confirmed Problem Chronic sinusitis (46845865) Sinusitis, unspecified chronicity, unspecified location (J32.9) Active confirmed Problem Pre-procedure evaluation check (012474173) Preoperative clearance (Z01.818) Active confirmed Problem Skin sensation disturbance (07353633) Numbness of toes (R20.0) Active confirmed Problem Follow-up status (569444580) Follow up (Z09) Active confirmed Plan Of Treatment No Information Insurance Providers Payer Name Payer Address Payer Phone Subscriber Number Group Number Insured Name Patient Relationship to Insured Coverage Start Date Coverage End Date [facility] Attn Claims Department [address] [place] [address] [phone] [id number] Rolo Mendiola Self - patient is the insured 2 [facility] [address] [place] [address] [phone] [id number] Rolo Mendiola Self - patient is the insured 2 Medical (General) History Medical History History ICD Code constipation Surgical History Surgery Date(Month/Year) Left big toe-bunion 2019 appendectomy 2019 right ankle-small bone removal 2021 Hospitalization History Reason Date(Month/Year) When appendix was removed 2019
--- OUTSIDE RECORDS SUMMARY | 2024-12-02 08:25 | XMS_ITS | Clinical Summary ---
Author Organization [email or web address] Address [address] [place] [address] Care Team Providers Care Director Prospect Name Role Phone Radha Fermin APRN-PRODUCT INFO SPECIALIST Primary Care Provider [phone] [facility] Affiliates and Associated Physician Practices is amultiple site organization consisting of ambulatory clinics and hospital sitesin [place], [place], [place] and [place]. This disclosure is being madepursuant to the Care Everywhere program and may not contain all information available regarding this patient. Last updated 17.[email or web address] Allergies No known active allergies Medications * Be aware that medications may not be up to date on this document. Alwaysverify current medications with the patient. ergocalciferol (DRISDOL) 1.25 MG (48749 UT) capsule Take 50,000 Units by mouth every 7 days Active Vit-Fe Fumarate-FA ( VITAMIN) 27-0.8 MG tablet Take 1 tablet by mouth once daily Active aspirin EC (Ecotrin) 81 MG tablet Take 1 (one) tablet by mouth once daily Active Active Problems Problem Noted Date Diagnosed Date Tachycardia Social History Tobacco Use Types Packs/Day Years Used Date Smoking Tobacco: Never Smokeless Tobacco: Never Comments No Sex and Gender Information Value Date Recorded Sex Assigned at Not on file Legal Sex Female 7:55 AM CDT Gender Identity Not on file Sexual Orientation Not on file Last Filed Vital Signs Vital Sign Reading Time Taken Comments Blood Pressure 118/62 10/19/2019 9:22 AM CDT Pulse 118 10/19/2019 9:22 AM CDT Temperature 36.8 C (98.3 F) 10/19/2019 9:22 AM CDT Respiratory Rate 16 10/19/2019 9:22 AM CDT Oxygen Saturation 98% 10/19/2019 9:22 AM CDT Inhaled Oxygen Concentration - - Weight 84.2 kg (185 lb 9.6 oz) 10/19/2019 9:22 A M CDT Height 180.3 cm (5' 11) 10/19/2019 9:22 AM CDT Body Mass Index 25.89 10/19/2019 9:22 AM CDT Plan of Treatment Health Maintenance Due Date Last Done Comments HIV SCREENING 2017 HPV VACCINE (1 - 3-dose series) 2017 CHLAMYDIA/GONORRHEA SCREENING 2018 MENINGOCOCCAL (Group B) VACCINE SHARED DECISION-MAKING (1 of 2 - Standard) 2018 HEPATITIS C SCREENING 06/05/2020 DTAP/TDAP/TD VACCINES (1 - Tdap) 2021 HEPATITIS B VACCINE (1 of 3 - 19+ 3-dose series) 2021 PAP SMEAR 06/11/2023 DEPRESSION SCREENING 03/02/2024 COVID-19 VACCINE (1 - 2023-2 5 season) 2024 INFLUENZA VACCINE (#1) 2024 6, 11/10/2009 ZOSTER VACCINE (1 of 2) 2052 HIB VACCINE Aged Out No longer eligi ble based on patient's age to complete this topic MENINGOCOCCAL GROUPS A/C/Y/W VACCINE Aged Out No longer eligible b ased on patient's age to complete this topic PNEUMOCOCCAL VACCINE Aged Out No long er eligible based on patient's age to complete this topic Insurance [facility] * Guarantor: ROLO NOLASCO Account Type Relation to Patient Date of Phone Billing Address Personal/Family [address] [place] [address] [facility] SELF PAY NO INSURANCE Member Subscriber Plan / Payer (Ef fective for All Dates) Name:Rolo Nolasco Jessica Member ID:Not on file Relation to Subscriber:Not on file Name:NOLASCOROLO Subscriber ID:Not on file Address: [address] [place] [address] Payer ID:Not on file Group ID:Not on file Type:Self Pay Address: [place], [place] * Guarantor: ROLO NOLASCO Account Type Relation to Patient Date of Phone Billing Address Personal/Family [address] [place] [address] [facility] SELF PAY NO INSURANCE Member Subscriber Plan / Payer (Ef fective for All Dates) Name:Luciano Nolasconoelle Lopez Member ID:Not on file Relation to Subscriber:Not on file Name:CONSTANCELUCIANOROLO Subscriber ID:Not on file Address: [address] [place] [address] Payer ID:Not on file Group ID:Not on file Type:Self Pay Address: [place], [place] * Guarantor: ROLO NOLASCO Account Type Relation to Patient Date of Phone Billing Address Personal/Family [address] [place] [address] [facility] SELF PAY NO INSURANCE Member Subscriber Plan / Payer (Ef fective for All Dates) Name:Rolo Nolasco Member ID:Not on file Relation to Subscriber:Not on file Name:LUCIANO NOLASCOTA Subscriber ID:Not on file Address: [address] [place] [address] Payer ID:Not on file Group ID:Not on file Type:Self Pay Address: [place], [place] Care Teams Director Prospect Relationship Specialty Start Date End Date Radha Fermin, FASHION STYLING INTERN-PRODUCT INFO SPECIALIST [address] [place] [address] PCP - General 02/18/22
--- OUTSIDE RECORDS SUMMARY | 2024-12-02 08:25 | XMS_ITS | Clinical Summary ---
Author Organization [facility] Address [address] [place] [address] Care Team Providers Care Senior Administrative Support Name Role Phone Radha Fermin BUSINESS CONTINUITY PLANNER Primary Care Provider [phone] Allergies No known active allergies Medications ivabradine (Corlanor) 5 mg tablet Take 1 tablet (5 mg total) by mouth daily 09/16/2021 Active metoprolol tartrate (LOPRESSOR) 25 mg immediate release tablet Take 1 tablet (25 mg total) by mouth daily 05/14/2022 Active Active Problems Problem Noted Date Diagnosed Date Numbness of toes 06/02/2022 Social History Tobacco Use Types Packs/Day Years Used Date Smoking Tobacco: Never Smokeless Tobacco: Never Personal Safety Answer Date Recorded Getting School Help Needed Not on file 03/09 Comments Unknown Sex and Gender Information Value Date Recorded Sex Assigned at Not on file Legal Sex Female 9:01 AM SAP MANAGER Gender Identity Not on file Sexual Orientation Not on file Obstetrics History Last Filed Vital Signs Vital Sign Reading Time Taken Comments Blood Pressure 96/60 06/02/2022 9:03 AM CDT Pulse 106 06/02/2022 9:03 AM CDT Temperature 36.4 C (97.5 F) 06/02/2022 9:03 AM CDT Respiratory Rate 20 06/02/2022 9:03 AM CDT Oxygen Saturation 99% 06/02/2022 9:03 AM CDT Inhaled Oxygen Concentration - - Weight 61.9 kg (136 lb 6.4 oz) 06/02/2022 9:03 A M CDT Height 180.3 cm (5' 11) 06/02/2022 9:03 AM CDT Body Mass Index 19.02 06/02/2022 9:03 AM CDT Plan of Treatment Health Maintenance Due Date Last Done Comments Cervical Cancer Screening 2002 Depression Screening 2002 Hepatitis C Screening 2002 DTaP/Tdap/Td Vaccine (1 - Tdap) 2013 Varicella Vaccines (1 of 2 - 13+ 2-dose series) 06/11/2015 HPV Vaccines (1 - 3-dose series) 2017 Meningococcal B Vaccine (1 o f 2 - Standard) 2018 Hepatitis B Screening 2020 Regular Well Visit/Exam 18-64 2020 Influenza Vaccine (#1) 2024 Pneumococcal vaccine <65 Aged Out No longer eligible based on patient's age to complete this topic [place] [address] [place] [address] Care Teams Senior Administrative Support Relationship Specialty Start Date End Date Radha Fermin NP PCP - General Nephrology 05/09/22
[2024-12-02 08:46] LABS: Hematocrit 37.8 % (37.0-47.0); Hemoglobin 12.6 g/dL (12.0-15.0); Mean Corpuscular HGB Conc 33.3 g/dl (32-36); Mean Corpuscular Hemoglobin 30.7 pg (26-34); Mean Corpuscular Volume 92.0 fl (80-100); Platelet Count Result 189 k/mm3 (150-375); Red Blood Count 4.11 M/mm3 (4.2-5.4); White Blood Count 6.2 K/mm3 (4.5-10.0)
[2024-12-02 09:17] LABS: Alanine Aminotransferase 16 U/L (6-35); Albumin Level 4.4 g/dL (3.5-5.1); Alkaline Phosphatase 57 U/L (38-126); Anion Gap 10 mmol/L (4-12); Aspartate Amino Transferase 23 U/L (14-36); Bilirubin,Total 0.5 mg/dL (0.2-1.3); Blood Urea Nitrogen 13 mg/dL (7-17); Calcium 9.2 mg/dL (8.4-10.2); Carbon Dioxide 24 mmol/L (22-30); Chloride 105 mmol/L (98-107); Estimated Glomerular Filt Rate > 60; Glucose 106 mg/dL (65-110); Potassium 3.6 mmol/L (3.4-5.0); Sodium 139 mmol/L (137-145); Total Protein 7.4 g/dL (6.3-8.2)
[2024-12-02 09:18] LABS: Free T4 Free Thyroxine 0.94 ng/dL (0.78-2.19)
[2024-12-02 09:52] LABS: Thyroid Stimulating Hormone 0.437 uIU/mL (0.465-4.680)
[2024-12-02 10:11] LABS: Vitamin B12 195.0 pg/mL (239-931)
[2024-12-02 11:41] LABS: Hemoglobin A1C 5.0 % (<5.7)
== END 2024-12-02 08:18 | disposition home or self-care (01) ==
LOC: ANHLAB 08:20
PROVIDERS: PCP Advanced Practice Midwife
DX: E13.21 Other specified diabetes mellitus with diabetic nephropathy (principal)
CPT/HCPCS: 36415; 80053; 82306; 82607; 83036; 84439; 84443; 85027